=== PATIENT | male | born 1960 | race Caucasian/White ===

== ENCOUNTER 2017-01-07 09:09 | Day surgery (SDC) | payer OTHER ==
[2017-01-07] MEDS ORDERED: D5 LR 1000 ML 1,000 ML IV ONE (09:23)
[2017-01-07] MEDS ORDERED: DIPRIVAN VIAL 20 ML ONE (10:32)
[2017-01-07 11:37] VITALS: BP 118/65
== END 2017-01-07 11:41 | disposition home or self-care (01) ==
LOC: SURG1 09:09
PROVIDERS: ATTEND Internal Medicine Gastroenterology
PROC: 0DBL8ZX Excision of Transverse Colon, Via Natural or Artificial Opening Endoscopic, Diagnostic (ICD-10-PCS; principal; 2017-01-07 11:15)
PROC: 0DJD8ZZ Inspection of Lower Intestinal Tract, Via Natural or Artificial Opening Endoscopic (ICD-10-PCS; principal; 2017-01-07 11:15)
DX: K92.1 Melena (principal); R19.4 Change in bowel habit; K92.2 Gastrointestinal hemorrhage, unspecified; K63.5 Polyp of colon; K64.0 First degree hemorrhoids
CPT/HCPCS: A4217; J3490; J7120

== ENCOUNTER → 2017-06-25 | Outpatient (CLI) | payer OTHER ==
--- NOTE | 2017-06-28 15:16 | MRI ---
History: Left knee osteoarthritis, left knee pain Technique: Multiplanar, multi sequence MR imaging of the left knee is performed without IV contrast. Comparison:NONE Findings: There is linear increased T2 signal within the posterior lateral fibers of the anterior cruciate liga ment near the tibial attachment which may represent a small developing ACL cyst or partial-thickness tear. The posterior cruciate ligament is intact. There is a complex tear involving body and posterior horn of the medial meniscus. There is 4 mm of ex trusion. The lateral meniscus is intact. The medial collateral ligament is intact. The iliotibial band, fibular collateral ligament, biceps fe [place] tendon are intact. Popliteus is intact. The tendons of the gastrocnemius, semimembranosus, and pes anserinus are intact. There is a patella baja noted. The distal portion of the quadriceps tendon appears intact. There is a small joint effusion. There is tendinosis of the patellar tendon which appears grossly intact. There is mild nonspecific edema noted along the distal pole of the patella. There is grade 3/grade 4 chond romalacia along the median patellar ridge and lateral patellar facet. Grade 2 chondromalacia along th e medial patellar facet. There is a mildly thickened medial patellar plica noted. The medial and the lateral retinacula appear intact. There is severe osteoarthrosis of the medial lateral femorotibial c ompartments. There is a large area of full-thickness chondral loss involving medial femoral condyle a nd medial tibial plateau with mild subcortical marrow edema. There is grade 2/grade 3 chondral diseas e noted in the lateral femorotibial compartment. There is a small focus of signal abnormality within the posterior medial femoral condyles which demonstrates serpiginous linear peripheral signal intensi ty and central low signal consistent with osteonecrosis. This measures 3 mm AP x 9 mm craniocaudal by 3 mm AP. Impression: 1. Complex tear of the body and posterior horn medial meniscus with mild extrusion 2. Linear increased T2 signal within the posterior lateral bundle of the anterior cruciate ligament w hich may represent a small developing ACL cyst versus partial thickness tear. Correlate for clinical signs of laxity. 3. Mildly inferiorly displaced patella consistent with a patella baja. The distal portion of the quad riceps tendon included within the [id number] appears grossly intact. Correlate for clinical signs of a quadriceps injury which may be proximal to the [id number] of the exam. This can be further as sessed with MRI imaging of the thigh if clinically indicated 4. Severe osteoarthrosis with peripheral balm of medial and lateral compartments. There is grade 4 ch ondral disease noted in the medial compartment. Grade 3/grade 4 chondromalacia noted at the patellofe moral compartment. Also of note is a mildly thickened medial patellar plica. Correlate clinically for signs of medial patellar plica syndrome 5. Small joint effusion 6. Patella tendinosis 8. Small focus of osteonecrosis involving the posterior medial femoral condyle which measures up to 9 mm in greatest dimension. 9. Other findings as above Reported By:
--- NOTE | 2017-06-28 16:35 | MRI ---
History: Right knee osteoarthritis Technique: Multiplanar, multi sequence MR imaging of the right knee was performed without IV contrast . Comparison:NONE Findings: Anterior cruciate and posterior cruciate ligaments are intact. There is a complex tear of the posterior horn and body of the medial meniscus. There is 4 mm of extru hafsa. There is an undersurface flap component of the posterior horn is seen on sagittal series 601, i mage 22. The body has a blunted appearance and may be secondary to degenerative tearing/displaced fla p tear or prior partial meniscectomy. The lateral meniscus is intact. The medial collateral ligament is intact. The iliotibial band is intact. There is intermediate signal within the fibular collateral ligament at the femoral attachment consistent with a remote sprain. Bi ceps femoris tendon is intact. Popliteus is intact. Tendons of the gastrocnemius, semimembranosus and pes anserinus are intact. The quadriceps and the patellar tendons are intact. There is mild tendinos is of the patellar tendon. There is a small joint effusion. There is mild deep infrapatellar bursitis . The patella is of normal morphology without significant tilt or subluxation. The medial and the later al retinacula are intact. There is grade 3 chondromalacia along the medial aspect of the trochlea and lateral patellar facets. There is moderate tricompartmental osteoarthrosis most severe in the medial femorotibial compartment where there is high-grade probable full-thickness cartilage loss involving medial femoral condyle and medial tibial plateau. There is mild subcortical marrow edema. There is gr justine 2 chondral disease noted in the lateral femorotibial compartment. There is a small popliteal cyst measuring 1.7 cm transverse dimension. Impression: 1. Complex tear involving body and posterior horn of the medial meniscus with mild extrusion. See dis cussion above. 2. Moderate tricompartmental osteoarthrosis most severe in the medial femorotibial compartment 3. Remote sprain of the fibular collateral ligament 4. Mild patellar tendinosis 5. Small joint effusion 6. Mild deep infrapatellar bursitis. Reported By:
== END ==
LOC: RAD 08:18
PROVIDERS: ATTEND Orthopaedic Surgery
DX: S83.232A Complex tear of medial meniscus, current injury, left knee, initial encounter (principal); S83.231A Complex tear of medial meniscus, current injury, right knee, initial encounter; X58.XXXA Exposure to other specified factors, initial encounter; M17.12 Unilateral primary osteoarthritis, left knee
CPT/HCPCS: 73721

== ENCOUNTER → 2017-07-15 | Outpatient (CLI) | payer OTHER ==
[2017-07-15 14:26] LABS: BILIRUBIN,URINE NEGATIVE (NEGATIVE); BLOOD/HEMOGLOBIN,URINE NEGATIVE (NEGATIVE); GLUCOSE, URINE NEGATIVE (NEGATIVE); KETONES,URINE NEGATIVE (NEGATIVE); LEUKOCYTE ESTERASE ,URINE 1+ (NEGATIVE); NITRITES,URINE NEGATIVE (NEGATIVE); PROTEIN,URINE 2+ (NEGATIVE); UROBILINOGEN,URINE 1+ (NORMAL)
[2017-07-15 14:32] LABS: BASOPHILS # (AUTO) 0.1 X10^3/uL (0.0-0.1); BASOPHILS % (AUTO) 0.8 % (0.2-1.0); EOSINOPHILS # (AUTO) 0.2 x10^3/uL (0.0-0.2); EOSINOPHILS % (AUTO) 1.6 % (0.9-2.9); HEMATOCRIT 44.5 % (42.0-54.0); HEMOGLOBIN 15.5 g/dL (13.5-18.0); LYMPHOCYTES % (AUTO) 35.8 % (21.0-51.0); MEAN CORPUSCULAR HEMOGLOBIN 30.5 pg (27.0-34.0); MEAN CORPUSCULAR HGB CONC 34.8 g/dL (33.0-35.0); MEAN CORPUSCULAR VOLUME 87.5 fL (80.0-100.0); MEAN PLATELET VOLUME 8.2 fL (7.4-11.0); MONOCYTES # (AUTO) 0.8 x10^3/uL (0.3-0.8); MONOCYTES % (AUTO) 7.6 % (0.0-13.0); NEUTROPHILS % (AUTO) 54.2 % (42.0-75.0); PLATELET COUNT 311 X10^3/uL (150.0-450.0); RED BLOOD COUNT 5.08 X10^6/uL (4.7-6.0); RED CELL DISTRIBUTION WIDTH 14.5 % (11.6-16.5)
[2017-07-15 14:36] LABS: APPEARANCE,URINE CLEAR (CLEAR); COLOR,URINE DARK YELLOW (YELLOW)
[2017-07-15 14:43] LABS: BACTERIA,URINE NEGATIVE /HPF (NEGATIVE); HYALINE CASTS, URINE MODERATE /LPF (NEGATIVE); RBC,URINE NONE SEEN /HPF (NONE SEEN); SQUAMOUS EPITHELIAL CELL,UR RARE /HPF (NEGATIVE)
--- NOTE | 2017-07-15 14:49 | RAD ---
Chest, PA and lateral Indication: Preoperative evaluation prior to knee arthroplasty Comparison: 03/27/2015 Findings: The cardiac silhouette is unremarkable. The lungs are clear without focal infiltrate or ple ural effusion. Impression: No acute chest process. Reported By:
[2017-07-15 14:53] LABS: ALANINE AMINOTRANSFERASE 38 Units/L (12-78); ALBUMIN 4.4 g/dL (3.4-5.0); ALKALINE PHOSPHATASE 109 Units/L (46-116); ASPARTATE AMINO TRANSFERASE 14 Units/L (15-37); BLOOD UREA NITROGEN 23 mg/dL (7-18); CALCIUM 9.4 mg/dL (8.5-10.1); CARBON DIOXIDE 29.2 mmol/L (21-32); CHLORIDE 102 mmol/L (98-107); CREATININE 1.42 mg/dL (0.70-1.30); SODIUM 141 mmol/L (136-145); TOTAL PROTEIN 8.2 g/dL (6.4-8.2); eGFR BLACK RACES > 60 (>60); eGFR NON BLACK RACES 55 (>60)
[2017-07-15 15:54] LABS: ERYTHROCYTE SEDIMENTATION RATE 5 MM/HOUR (0-15)
== END ==
LOC: LAB 13:51
PROVIDERS: ATTEND Orthopaedic Surgery
DX: Z01.818 Encounter for other preprocedural examination (principal); Z79.01 Long term (current) use of anticoagulants; Z11.8 Encounter for screening for other infectious and parasitic diseases; Z01.811 Encounter for preprocedural respiratory examination; Z01.810 Encounter for preprocedural cardiovascular examination; M17.12 Unilateral primary osteoarthritis, left knee
CPT/HCPCS: 36415; 71046; 80053; 81001; 85025; 85610; 85652; 85730; 86140; 86850; 86900; 86901; 87086; 87640; 87641; 93005; 93010